=== PATIENT | male | born 1970 ===

== ENCOUNTER 2024-03-20 13:08 | Emergency (ER) | payer MEDICARE, MEDICAID, SELFPAY ==
[2024-03-20 13:35] VITALS: BP 122/73; PULSE 79; RESP 16; TEMP 36.7; O2SAT 98; BMI 22.8
--- NOTE | 2024-03-20 13:44 | ED.GENADULT ---
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 he is confused as to why he is getting the vancomycin and pushes the pole away and gets constant reminders. His guardian has been involved and they are attempting to send staff in during his infusions but have not yet. He did not try to hurt anyone today but they weren't able to give him the infusion. MD complaint: anxiety Onset (ago): day(s) (today) Radiation: non-radiation Severity: moderate Relieving factors: none Exacerbating factors: other Associated symptoms: denies other symptoms Treatments prior to arrival: none Related Data Allergies Allergy/AdvReac Type Severity Reaction Status Date / Time Penicillins Allergy Unknown Verified 03/20/24 13:50 phenytoin [From Dilantin] Allergy Unknown Verified 03/20/24 13:51 Review of Systems Review of Systems: ROS unable to be obtained due to poor historian [facility] Past Medical History Source: old records reviewed Medical History TBI (traumatic brain injury) Seizures Social History Social History (Updated 03/20/24 @ 13:51 by Deloris Martin DO) Patient Tobacco Use Status: Tobacco use Unknown Physical Exam ED Vital Signs: Vital Signs - 24 hr 03/20/24 13:35 Temperature 98.1 F Pulse Rate 79 Respiratory Rate 16 Blood Pressure 122/73 Pulse Oximetry 98 Oxygen Delivery Method Room Air BMI result Body Mass Index 22.8 Appearance: Alert. Oriented X to person and place. No acute distress. Eyes: Pupils equal, round and reactive to light. ENT: Pharynx MMM Neck: Normal inspection. Neck supple. CVS: Normal heart rate and rhythm. Pulses normal. Respiratory: No respiratory distress. Breath sounds normal. Abdomen: Soft and nontender. Skin: Skin warm and dry. Normal skin color. Normal skin turgor. Extremities: No lower extremity edema. L PICC line site is c/d/i catheter in place Neuro: Oriented X 2 moves extremities without issue. 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 reportedly more anxious and not understanding why he is getting infusions and today pushed an IV pole so they sent him to the ED. He has stable VS, he has no SI/HI at this time I will dose with vancomycin and send back to facility does not need inpatient psychiatry. Differential Diagnosis Differential Diagnoses: The differential diagnosis associated with the presentation includes anxiety, TBI Independent Historian Clinical information obtained from an independent historian. History obtained from or confirmed by: EMS External Record Review External record reviewed: Outpatient record Discharge Plan Discharge Clinical Impression: Anxiety Patient Disposition: Home, Self-Care Instructions: Anxiety (ED) Additional Instructions: return for worsening symptoms given dose of vancomycin while in ED would given 1mg PRN ativan dose prior to infusions as needed
[2024-03-20] MEDS: vancomycin HCL 1,000 MG, vancomycin HCL 750 MG in 0.9 % Sodium Chloride 500 ML 267.5 MG IV (14:42)
--- NOTE | 2024-03-20 14:45 | PC.NURSE ---
pt medicated per MAR IV vancomycin infusing per order. pt is calm and cooperative, answers questions appropriately. pt educated on why he is receiving vancomycin, verbalizes understanding. pt allowed this nurse to scrub hubs of picc line, flush lines and initiate infusion without incident. pt will fidget with IV line occasionally, but is not attempting to pull picc line. pt sitting upright watching TV. No distress noted
--- NOTE | 2024-03-20 15:26 | PC.NURSE ---
pt began to pull at g-tube site, pt provided with sensory items to redirect, care ongoing
[2024-03-20 18:10] VITALS: BP 122/73; PULSE 79; RESP 16; TEMP 36.7; O2SAT 98
== END 2024-03-20 18:10 | disposition home or self-care (01) ==
PROVIDERS: Emergency Provider Emergency Medicine; PCP Internal Medicine
DX: F41.9 Anxiety disorder, unspecified (principal); G40.909 Epilepsy, unspecified, not intractable, without status epilepticus; Z87.820 Personal history of traumatic brain injury; Z86.14 Personal history of Methicillin resistant Staphylococcus aureus infection; Z79.2 Long term (current) use of antibiotics
CPT/HCPCS: 96365; 96366; 99284; J3370